=== PATIENT | male | born 1965 | race Caucasian/White ===

== ENCOUNTER 2020-12-15 07:59 | Day surgery (SDC) | payer OTHER ==
[~2020-12-15] VITALS: Ht 170.2 cm; Wt 81.8 kg
[~2020-12-15 07:59] MED LIST: ERGO500093 PO; METO100T14 PO; OMEP40CA21 PO; SIMV-261 PO
[2020-12-15] MEDS ORDERED: SODIUM CHLORIDE 0.9% 1,000 ML IV ONE ×2 (08:00→08:30)
[2020-12-15] MEDS ORDERED: ASPI-1522 PO (08:31)
[2020-12-15] MEDS ORDERED: SODIUM CHLORIDE 0.9% 1,000 ML ONE (08:43)
[2020-12-15] MEDS ORDERED: SODIUM BICARBONATE 50 MEQ/50 ML VIAL ONE (10:09)
[2020-12-15] MEDS ORDERED: IOHEXOL 300 MG/ML 50 ML VIAL ONE (10:09)
[2020-12-15] MEDS ORDERED: LIDOCAINE/PF 1% 30 ML VIAL ONE (10:09)
[2020-12-15] MEDS ORDERED: IOHEXOL 300 MG/ML 100 ML VIAL ONE (10:10)
[2020-12-15] MEDS ORDERED: HEPARIN SODIUM 1000 UNITS/NS 1,000 ML ONE ×2 (10:10)
[2020-12-15] MEDS ORDERED: IOHEXOL 300 MG/ML 150 ML VIAL ONE (10:10)
[2020-12-15] MEDS ORDERED: DiphenhydrAMINE HCL 50 MG CAPSULE PO ONE (10:30)
[2020-12-15] MEDS ORDERED: ASPIRIN 81 MG CHEWABLE TABLET PO ONE (10:30)
[2020-12-15] MEDS ORDERED: DIAZEPAM 5 MG TABLET PO ONE (10:30)
[2020-12-15 10:44] VITALS: BP 167/85
[2020-12-15] MEDS ORDERED: FentaNYL CITRATE PF 100 MCG/2 ML VIAL ONE (10:50)
[2020-12-15] MEDS ORDERED: MIDAZOLAM HCL 2 MG/2 ML VIAL ONE (10:51)
[2020-12-15] MEDS ORDERED: LIDOCAINE 1% 30 ML/SOD BICARB 8.4% 4 ML SQ ONE (11:15)
[2020-12-15] MEDS ORDERED: HEPARIN SODIUM 1000 UNITS/NS 1,000 ML IARTER ONE (11:15)
[2020-12-15] MEDS ORDERED: FentaNYL CITRATE PF 100 MCG/2 ML VIAL IVP ONE ×2 (11:15→11:30)
[2020-12-15] MEDS ORDERED: IOHEXOL 300 MG/ML 150 ML VIAL IARTER ONE (11:15)
[2020-12-15] MEDS ORDERED: MIDAZOLAM HCL 2 MG/2 ML VIAL IVP ONE ×2 (11:15→11:30)
[2020-12-15] MEDS ORDERED: TICAGRELOR 90 MG TABLET ONE (11:22)
[2020-12-15] MEDS ORDERED: IOHEXOL 300 MG/ML 50 ML VIAL IARTER ONE (11:30)
[2020-12-15] MEDS ORDERED: HEPARIN SODIUM,PORCINE 5,000 UNITS/ML VIAL IVP ONE ×2 (11:30→11:45)
[2020-12-15] MEDS ORDERED: TICAGRELOR 90 MG TABLET PO ONE (11:30)
[2020-12-15] MEDS ORDERED: IOHEXOL 300 MG/ML 100 ML VIAL IARTER ONE (11:30)
[2020-12-15 11:55] VITALS: BP 142/88
== END 2020-12-15 15:30 | disposition home or self-care (01) ==
LOC: CATHLAB 07:59
PROVIDERS: ATTEND Internal Medicine Interventional Cardiology
DX: R94.39 Abnormal result of other cardiovascular function study (principal); I25.119 Atherosclerotic heart disease of native coronary artery with unspecified angina pectoris; I10 Essential (primary) hypertension; E78.5 Hyperlipidemia, unspecified; Z79.899 Other long term (current) drug therapy; Z98.890 Other specified postprocedural states
CPT/HCPCS: 93005; 93458; 99152; 99153; C1760; C1874; C1887; C9600; J1644; J2250; J3010; J3490 ×2; J7030; Q9967 ×3; 92920; 92928

== ENCOUNTER 2021-02-02 08:16 | Inpatient (IN) | payer OTHER ==
[~2021-02-02] VITALS: Ht 167.6 cm; Wt 73.4 kg
[2021-02-02] VITALS (8 sets, daily range): BP systolic 119–193; BP diastolic 73–97
[~2021-02-02 08:16] MED LIST changes: +ASPI-1522 PO; -ERGO500093 PO; -OMEP40CA21 PO
[2021-02-02] MEDS ORDERED: DiphenhydrAMINE HCL 50 MG CAPSULE PO ONE (08:30)
[2021-02-02] MEDS ORDERED: DIAZEPAM 5 MG TABLET PO ONE (08:30)
[2021-02-02] MEDS ORDERED: SODIUM CHLORIDE 0.9% 1,000 ML IV ONE (08:30)
[2021-02-02] MEDS ORDERED: ASPIRIN 81 MG CHEWABLE TABLET PO ONE (08:30)
[2021-02-02] MEDS ORDERED: SODIUM CHLORIDE 0.9% 1,000 ML ONE ×2 (09:30→10:43)
[2021-02-02] MEDS ORDERED: LIDOCAINE/PF 1% 30 ML VIAL ONE ×2 (11:12→13:00)
[2021-02-02] MEDS ORDERED: IOHEXOL 300 MG/ML 50 ML VIAL ONE ×2 (11:12→12:59)
[2021-02-02] MEDS ORDERED: IOHEXOL 300 MG/ML 100 ML VIAL ONE ×2 (11:13→13:00)
[2021-02-02] MEDS ORDERED: SODIUM BICARBONATE 50 MEQ/50 ML VIAL ONE ×2 (11:13→13:00)
[2021-02-02] MEDS ORDERED: IOHEXOL 300 MG/ML 150 ML VIAL ONE ×3 (11:13→13:21)
[2021-02-02] MEDS ORDERED: HEPARIN SODIUM 1000 UNITS/NS 0 ML ONE (11:13)
[2021-02-02] MEDS ORDERED: DiphenhydrAMINE HCL 50 MG CAPSULE ONE (11:34)
[2021-02-02] MEDS ORDERED: ASPIRIN 81 MG CHEWABLE TABLET ONE (11:34)
[2021-02-02] MEDS ORDERED: DIAZEPAM 5 MG TABLET ONE (11:34)
[2021-02-02] MEDS ORDERED: 0.9% SODIUM CHLORIDE 10 ML SYRINGE IVP ONE (13:01)
[2021-02-02] MEDS ORDERED: HEPARIN SODIUM 1000 UNITS/NS 1,000 ML ONE (13:01)
[2021-02-02] MEDS ORDERED: MIDAZOLAM HCL 2 MG/2 ML VIAL IVP ONE (13:33)
[2021-02-02] MEDS ORDERED: FentaNYL CITRATE PF 100 MCG/2 ML VIAL IVP ONE (13:33)
[2021-02-02] MEDS ORDERED: FentaNYL CITRATE PF 100 MCG/2 ML VIAL ONE (13:34)
[2021-02-02] MEDS ORDERED: MIDAZOLAM HCL 2 MG/2 ML VIAL ONE (13:34)
[2021-02-02] MEDS ORDERED: LIDOCAINE 1% 30 ML/SOD BICARB 8.4% 4 ML SQ ONE (13:37)
[2021-02-02] MEDS ORDERED: HEPARIN SODIUM 1000 UNITS/NS 1,000 ML IARTER ONE (13:39)
[2021-02-02] MEDS ORDERED: IOHEXOL 300 MG/ML 100 ML VIAL IARTER ONE (13:41)
[2021-02-02] MEDS ORDERED: IOHEXOL 300 MG/ML 150 ML VIAL IARTER ONE (13:41)
[2021-02-02] MEDS ORDERED: HEPARIN SODIUM,PORCINE 1,000 UNITS/ML 10 ML VIAL ONE (13:42)
[2021-02-02] MEDS ORDERED: HEPARIN SODIUM,PORCINE 5,000 UNITS/ML VIAL IVP ONE (13:43)
[2021-02-02] MEDS ORDERED: TICAGRELOR 90 MG TABLET ONE ×2 (14:12→14:13)
[2021-02-02] MEDS ORDERED: TICAGRELOR 90 MG TABLET PO ONE (14:19)
[2021-02-02] MEDS ORDERED: HydrALAZINE HCL 20 MG/ML VIAL ONE ×2 (14:24→15:32)
[2021-02-02] MEDS ORDERED: HydrALAZINE HCL 20 MG/ML VIAL IVP ONE ×3 (14:25→15:45)
[2021-02-02] MEDS ORDERED: METOPROLOL TARTRATE 5 MG/5 ML VIAL IVP ONE (15:30)
[2021-02-02] MEDS ORDERED: METOPROLOL TARTRATE 5 MG/5 ML VIAL ONE (15:33)
[2021-02-02] MEDS ORDERED: ONDANSETRON HCL 4 MG/2 ML VIAL IVP PRN (16:30)
[2021-02-02] MEDS ORDERED: BISACODYL 10 MG RECTAL RECTAL SUPPOSITORY PR PRN (16:30)
[2021-02-02] MEDS ORDERED: ZOLPIDEM TARTRATE 5 MG TABLET PO PRN (16:30)
[2021-02-02] MEDS ORDERED: HYDROCODONE/ACETAMINOPHEN 5-325 MG TABLET PO PRN (16:30)
[2021-02-02] MEDS ORDERED: MORPHINE SULFATE 2 MG/ML SYRINGE IVP PRN (16:30)
[2021-02-02] MEDS ORDERED: MAGNESIUM HYDROXIDE SUSPENSION 30 ML UDCUP PO PRN (16:30)
[2021-02-02] MEDS ORDERED: ACETAMINOPHEN 325 MG TABLET PO PRN (16:30)
[2021-02-02] MEDS ORDERED: OMEP40CA21 PO (16:35)
[2021-02-02] MEDS ORDERED: ERGO500093 PO (16:35)
[2021-02-02] MEDS: TICAGRELOR 90 MG TABLET PO SCH (20:02)
[2021-02-02] MEDS: DOCUSATE SODIUM 100 MG CAPSULE PO SCH (20:02)
[2021-02-02] MEDS ORDERED: ATORVASTATIN CALCIUM 40 MG TABLET PO SCH (21:00)
[2021-02-02] MEDS: HEPARIN SODIUM,PORCINE 5,000 UNITS/ML VIAL SQ SCH (23:16)
[2021-02-03] VITALS: BP 128/79
[2021-02-03 00:11] VITALS: BP 128/79
[2021-02-03 04:00] VITALS: BP 127/84
[2021-02-03 04:20] VITALS: BP 127/84
[2021-02-03 07:04] VITALS: BP 134/79
[2021-02-03 07:57] LABS: BASOPHILS % (AUTO) 0.2 % (0.0-2.0); EOSINOPHILS % (AUTO) 1.2 % (1.0-6.0); HEMATOCRIT 43.7 % (41-53); LYMPHOCYTES # (AUTO) 1.9 K/uL (1.0-4.8); LYMPHOCYTES % (AUTO) 21.6 % (22.0-44.0); MEAN CORPUSCULAR HEMOGLOBIN 30.9 pg (26.0-34.0); MEAN CORPUSCULAR HGB CONC 34.4 G/dL (31.0-37.0); MEAN CORPUSCULAR VOLUME 90 fL (80-100); MONOCYTES # (AUTO) 0.7 K/uL (0.1-1.0); MONOCYTES % (AUTO) 7.7 % (2.0-9.0); NEUTROPHILS % (AUTO) 69.3 % (40.0-70.0); PLATELET COUNT (AUTO) 207 K/uL (150-450); RED BLOOD CELL COUNT(AUTO) 4.87 MIL/uL (4.50-5.90); RED CELL DISTRIBUTION WIDTH 13.8 % (11.5-14.5)
[2021-02-03] MEDS: HEPARIN SODIUM,PORCINE 5,000 UNITS/ML VIAL SQ SCH (08:00)
[2021-02-03 08:18] LABS: ANION GAP 10 mmol/L (8-16); CALCIUM, TOTAL 8.5 mg/dL (8.8-10.5); CARBON DIOXIDE 27 mmol/L (22-29); CHLORIDE 104 mmol/L (98-107); CREATININE 0.85 mg/dL (0.60-1.30); GLOMERULAR FILTR. RATE CALC > 60 mL/min (>60); GLUCOSE,RANDOM 96 mg/dL (70-110); POTASSIUM 3.8 mmol/L (3.5-5.1); SODIUM SERUM 141 mmol/L (136-145); UREA NITROGEN, BLOOD 14 mg/dL (7-18)
[2021-02-03] MEDS: DOCUSATE SODIUM 100 MG CAPSULE PO SCH (08:27)
[2021-02-03] MEDS: TICAGRELOR 90 MG TABLET PO SCH (08:28)
[2021-02-03] MEDS ORDERED: PANTOPRAZOLE SODIUM 40 MG DR TABLET PO SCH (09:00)
[2021-02-03] MEDS ORDERED: METOPROLOL TARTRATE 50 MG TABLET PO SCH (09:00)
[2021-02-03] MEDS ORDERED: ASPIRIN 81 MG DR TABLET PO SCH (09:00)
[2021-02-03 10:57] VITALS: BP 126/80
== END 2021-02-03 11:45 | disposition home or self-care (01) | DRG 175 ==
LOC: CATHLAB 08:16 → INTOOBSV 18:15 → OBSVTOIN 18:15 → 5S 18:15
PROVIDERS: ADMIT Internal Medicine; ATTEND Internal Medicine Interventional Cardiology
PROC: 027035Z Dilation of Coronary Artery, One Artery with Two Drug-eluting Intraluminal Devices, Percutaneous Approach (ICD-10-PCS; principal; 2021-02-02)
PROC: B41FYZZ Fluoroscopy of Right Lower Extremity Arteries using Other Contrast (ICD-10-PCS; 2021-02-02)
PROC: 4A023N7 Measurement of Cardiac Sampling and Pressure, Left Heart, Percutaneous Approach (ICD-10-PCS; 2021-02-02)
PROC: B211YZZ Fluoroscopy of Multiple Coronary Arteries using Other Contrast (ICD-10-PCS; 2021-02-02)
DX: I25.119 Atherosclerotic heart disease of native coronary artery with unspecified angina pectoris (principal); E78.5 Hyperlipidemia, unspecified; I10 Essential (primary) hypertension; Z95.5 Presence of coronary angioplasty implant and graft
CPT/HCPCS: 80048; 85025; 87081; 92920; 92928; 93005; 99219; J0360; J1644; J2250; J3010; J3490; J7030; Q9967; 36415-L1; 36415-TC